=== PATIENT | male | born 1935 | race Caucasian/White ===

== ENCOUNTER 2018-09-17 14:19 | Emergency (ER) | payer OTHER ==
[2018-09-17] MEDS ORDERED: LET GEL TOPICAL 1 EA SYR TP ONE (14:29)
[2018-09-17] MEDS ORDERED: AMOXICILLIN/CLAVULANATE POT 875/125 MG TAB PO ONE (14:29)
[2018-09-17] MEDS ORDERED: TDAP ADULT 0.5 ML INJ (BOOSTRIX) IM ONE (14:29)
--- NOTE | 2018-09-17 14:35 | EDPHY ---
H & P Stated Complaint: R forearm dog bite Time Seen by Provider: 09/17/18 14:29 HPI/ROS: HPI: This is an 83-year-old male who presents with Chief Complaint: Right forearm dog bite Location: Right forearm Quality: Dog bite Duration: Prior to arrival Signs and Symptoms: + bleeding, no radiation, no numbness, no weakness, no tingling, no incontinence, no decreased range of motion, no swelling, no pain, no fever Timing: Acute Severity: [id number] Context: Patient reports that he was bit by his neighbor's dog that appears to be a portal tight breed. He is unsure of dog's vaccination status. He is unsure of his tetanus status. He reports that the bite started to bleed and he "just let it do so for few minutes to clean it out." Takes aspirin daily. Denies any radiation, weakness, decreased range of motion, pain currently. He reports he felt initial pain with a dog bite but has since resolved. 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 Modifying Factors: Direct pressure Comment: ROS: A comprehensive 10 system review of systems is otherwise negative aside from elements mentioned in the history of present illness. MEDICAL/SURGICAL/SOCIAL HISTORY: Medical history: prostate CA, hernia, HTN Surgical history: Bilateral shoulder surgery Social history: . Never smoked. Works as a physicist. CONSTITUTIONAL: Polite and cooperative elderly white male, awake and alert, no obvious distress HEENT: Atraumatic and normocephalic, PERRL, EOMI. Nares patent; no rhinorrhea; no nasal mucosal edema. Tympanic membranes clear. Oropharynx clear, no exudate and moist pink mucosa. Airway patent. No lymphadenopathy. No meningismus. Cardiovascular: Normal S1/S2, regular rate, regular rhythm, without murmur rub or gallop. PULMONARY/CHEST: Symmetrical and nontender. Clear to auscultation bilaterally. Good air movement. No accessory muscle usage. ABDOMEN: Soft, nondistended, nontender, no rebound, no guarding, no peritoneal signs, no masses or organomegaly. No CVAT. EXTREMITIES: 2/2 pulses, right dorsal aspect of the forearm shows small puncture site with no active bleeding with approximately 1 inch surrounding hematoma; no ecchymosis or skin discoloration. Right elbow and wrist have full range of motion. strength 5/5, no deformities, no clubbing, no cyanosis or edema. NEUROLOGICAL: no focal neuro deficits. GCS 15. SKIN: Warm and dry, pallor, no erythema. no rash. Good capillary refill. Source: Patient Exam Limitations: No limitations - Personal History Current Tetanus/Diphtheria Vaccine: Unsure Current Tetanus Diphtheria and Acellular Pertussis (TDAP): Unsure - Medical/Surgical History Hx Asthma: No Hx Chronic Respiratory Disease: No Hx Diabetes: No Hx Cardiac Disease: No Hx Renal Disease: No Hx Cirrhosis: No Hx Alcoholism: No Hx HIV/AIDS: No Hx Splenectomy or Spleen Trauma: No Other PMH: prostate CA, hernia, HTN, OSVALDO shoulder surgery, - Social History Smoking Status: Never smoked Constitutional: Initial Vital Signs Temperature (C) 36.3 C 09/17/18 14:23 Heart Rate 81 09/17/18 14:23 Respiratory Rate 16 09/17/18 14:23 Blood Pressure 143/87 H 09/17/18 14:23 O2 Sat (%) 95 09/17/18 14:23 O2 Delivery Mode Room Air Allergies/Adverse Reactions: Sulfa (Sulfonamide Antibiotics) Allergy (Verified 09/17/18 14:23) Home Medications: Medication Instructions Recorded Lisinopril 09/16/15 Amoxicillin/Clavulanate Pot 875 mg PO BID #14 tab 09/17/18 [Augmentin 875 MG TAB (*)] Aspirin EC 81 mg (*) 09/17/18 Medical Decision Making ED Course/Re-evaluation: Vital signs reviewed and stable upon arrival. Tetanus booster ordered Animal Control contacted. They will contact the movie writer of the dog to determine if immunizations are up-to-date primarily rabies and determine if need to quarantine the dog. 1530: Let topical applied, copiously irrigated and washed with soap and water; bacitracin clean sterile dressing applied Given Augmentin and Rx for same Long discussion with patient whether to initiate rabies prophylaxis. He wishes to hold off and determine vaccination status of the dog that bit him. He will follow up with his primary care provider and wound check in 2-3 days. No signs of neurovascular compromise/tenting of skin/compartment syndrome/ extremities and joints examined above and below area of concern and are neurovascularly intact. This patient was seen under the supervision of my primary supervising physician. I evaluated care for this patient independently. Differential Diagnosis: Differential diagnosis includes but is not limited to puncture wound, cellulitis , nerve injury, tendon injury, foreign body. - Data Points Medications Given: Discontinued Medications Amoxicillin/Clavulanate Potassium (Augmentin 875mg) 875 mg PO EDNOW ONE PRN Reason: Protocol Stop: 09/17/18 14:30 Last Admin: 09/17/18 14:35 Dose: 875 mg Diphtheria/Tetanus/Acell Pertussis (Boostrix) 0.5 ml IM .ONCE ONE Stop: 09/17/18 14:30 Last Admin: 09/17/18 14:35 Dose: 0.5 ml Tetracaine/Epinephrine/Lidocaine (Let Gel Topical) 1 ea TP ONCE ONE Stop: 09/17/18 14:30 Last Admin: 09/17/18 14:35 Dose: 1 ea Departure - Departure Disposition: Home, Routine, Self-Care Clinical Impression: Dog bite of right forearm Qualifiers: Encounter type: initial encounter Qualified Code(s): S51.851A - Open bite of right forearm, initial encounter Traumatic hematoma of right forearm Qualifiers: Encounter type: initial encounter Qualified Code(s): S50.11XA - Contusion of right forearm, initial encounter Condition: Good Instructions: Animal Bite (ED) Additional Instructions: Keep the dressing dry and in place for 48 hours. After 48 hours, you may remove the dressing; wash the site daily with mild soap and water; then pat dry. Apply topical antibiotic ointment and keep covered with sterile dressing until fully healed. Do not soak in a bathtub or go swimming until fully healed. Take antibiotic as directed. Do not skip a dose. Take Tylenol 650 mg every 4 hours and/or Ibuprofen 600 mg every 8 hours with food as needed for pain. Follow-up with animal control or dog's movie writer as soon as possible regarding dog' s rabies status. If the dog is not up-to-date on rabies vaccination, follow-up with primary care provider or emergency room to receive rabies prophylaxis. Return to the ER immediately if you experience redness, red streaks, have fevers /chills, flu like symptoms, limited range of motion, or any other symptoms that concern you. Wound Care Follow-Up: Wound evaluation and dressing change in [ 3 ] days. There is a charge for this evaluation in the Emergency Department. Referrals: Erik Escudero MD [Medical Doctor] - As per Instructions Prescriptions: Amoxicillin/Clavulanate Pot [Augmentin 875 MG TAB (*)] 875 mg PO BID #14 tab
[2018-09-17 16:03] VITALS: BP 135/78
== END 2018-09-17 16:03 | disposition home or self-care (01) ==
DX: S51.851A Open bite of right forearm, initial encounter (principal); S50.11XA Contusion of right forearm, initial encounter; W54.0XXA Bitten by dog, initial encounter; I10 Essential (primary) hypertension; Z85.46 Personal history of malignant neoplasm of prostate; Z88.0 Allergy status to penicillin; Z23 Encounter for immunization

== ENCOUNTER → 2018-10-22 | Outpatient (CLI) | payer OTHER ==
[~2018-10-22] MED LIST: GADOBUTROL 10 ML VIAL IVP ONE
== END ==
LOC: FIMAGING 10-07 10:30
PROVIDERS: ATTEND Psychiatry & Neurology Neurology
DX: H53.2 Diplopia (principal); G31.9 Degenerative disease of nervous system, unspecified
CPT/HCPCS: 70543; 70553; A9585; 82565-PO